=== PATIENT | female | born 1995 | race Caucasian/White ===

== ENCOUNTER 2023-10-02 19:20 | Emergency (ER) | payer SELFPAY ==
[~2023-10-02] VITALS: Ht 162.6 cm; Wt 75.0 kg
[2023-10-02 19:28] VITALS: O2SAT 97
[2023-10-02 20:39] LABS: CLARITY URINE CLOUDY (CLEAR); COLOR URINE YELLOW (YELLOW); GLUCOSE URINE NEGATIVE (NEGATIVE); KETONES URINE NEGATIVE (NEGATIVE); LEUKOCYTE ESTERASE URINE 3+ (NEGATIVE); NITRITE URINE NEGATIVE (NEGATIVE); OCCULT BLOOD URINE NEGATIVE (NEGATIVE); PH URINE 6.5 (4.5-8.0); PROTEIN URINE NEGATIVE (NEGATIVE); SPECIFIC GRAVITY URINE 1.018 (1.005-1.030)
[2023-10-02] MEDS: IBUPROFEN 600MG TABLET PO ONE (20:43)
[2023-10-02] MEDS: TRAMADOL 50MG TABLET PO ONE (20:44)
[2023-10-02 20:55] LABS: BACTERIA URINE 2+; RBC URINE 0-2 /hpf (0-2); SQUAMOUS EPITHELIAL CELL URINE 1+ /lpf (RARE/1+)
[2023-10-02 20:56] LABS: WBC URINE TNTC /hpf (0-2)
[2023-10-02] MEDS ORDERED: LEVO-65 MT (21:04)
[2023-10-02] MEDS ORDERED: IBUP-2029 MT (21:04)
[2023-10-02 21:37] VITALS: BP 114/58; PULSE 73; RESP 20; TEMP 98.9
== END 2023-10-02 21:36 | disposition home or self-care (01) ==
LOC: ER 19:20
DX: N12 Tubulo-interstitial nephritis, not specified as acute or chronic (principal)
CPT/HCPCS: 72100; 81003; 81025; 99284

== ENCOUNTER 2024-09-04 04:08 | Emergency (ER) | payer MEDICAID ==
[~2024-09-04] VITALS: Ht 157.5 cm; Wt 89.0 kg
[~2024-09-04 04:08] MED LIST: IBUP-2029 MT; LEVO-65 MT
[2024-09-04 04:21] VITALS: TEMP 36.7; O2SAT 98
[2024-09-04] MEDS ORDERED: OFLO5DRO4 EACH EAR (04:52)
[2024-09-04] MEDS ORDERED: CARB-274 EACH EAR (04:52)
[2024-09-04 05:25] VITALS: BP 124/68; PULSE 75; RESP 18; O2SAT 96
== END 2024-09-04 05:25 | disposition home or self-care (01) ==
LOC: ER 04:08
DX: H60.92 Unspecified otitis externa, left ear (principal)
CPT/HCPCS: 99283